=== PATIENT | female | born 1965 | race Caucasian/White ===

== ENCOUNTER 2023-02-28 17:56 | Observation (INO) | payer MEDICARE, MEDICAID, SELFPAY ==
[2023-02-20 11:23] LABS: Hematocrit 44.4 % (37-47); Hemoglobin 14.3 g/dL (12.0-15.0); Mean Corp Hgb Conc 32.2 g/dL (32-36); Mean Corpuscular Hgb 32.1 pg (27.0-32.0); Mean Corpuscular Volume 99.8 fL (81-99); Mean Platelet Vol. 9.3 fl (6.2-12.0); Platelet Count 200 K/mm3 (150-450); RBC Distribution Width CV 13.6 % (11.6-14.6); RBC Distribution Width SD 50.1 fl (35.1-43.9); Red Blood Count 4.45 M/mm3 (4.2-5.4); White Blood Count 7.9 K/mm3 (4.4-11.0)
[2023-02-20 12:07] LABS: Magnesium 2.6 mg/dL (1.6-2.6)
[2023-02-28] VITALS (10 sets, daily range): BP systolic 115–148; BP diastolic 67–88; PULSE 66–90; RESP 16; TEMP 36.6–37.3; O2SAT 98–100
[2023-02-28] MEDS: Lactated Ringers 1,000 ML 40 ML IV (06:00)
[2023-02-28] MEDS: Scopolamine 1mg/72hr Patch 1 PATCH TD (06:00)
[2023-02-28] MEDS: Magnesium 1 GM over 15 mins IV (06:30)
[2023-02-28] MEDS: Gabapentin 600 MG Tablet PO (06:45)
[2023-02-28] MEDS: Acetaminophen 500 MG Tablet 1000 MG PO ×2 (06:45→21:35)
[2023-02-28 07:00] LABS: Bedside Glucose 82 mg/dL (74-106)
--- NOTE | 2023-02-28 07:30 | BR_PTH ---
PATIENT: KWASI HARMON LOC: MS3 U#:[id number] AGE/SX: 57/F ROOM: [facility] RE02/28/[address]: Dr. Alan Vernon MD : 1965 BED: 1 DIS: 03/01/2023 SPEC #: [id number] RECD: 03/01/23 08:50 STATUS: MAYNOR BORDEN #: [id number] LADONNA: 02/28/23 07:[address]: Alan Vernon DEPT: SURGICAL PATHOLOGY RECD BY: Lluvia Wilcox ENTERED: 03/01/23 09:52 SP TYPE: MAMOPLASTY OTHR DR: Luciana Scott MD Tissues: A - Right breast, NOS B - Left breast, NOS Procedures: Surgery Specimen Level IV HEADER OPERATION: ERAS, breast reduction, mammoplasty PRE-OP DIAGNOSIS: Bilateral macromastia, neck and thoracic back pain, bilateral shoulder pain TISSUE SUBMITTED: A - Right breast, B - Left breast MICROSCOPIC DIAGNOSIS A. Right breast, reduction mammoplasty: Fibrocystic change. Focal lobular involution. Focal intraductal hyperplasia without atypia. Banal microcalcifications. Skin with no pathologic change. B. Left breast, reduction mammoplasty: Fibrocystic change. Focal lobular involution. Focal intraductal hyperplasia without atypia. Banal microcalcifications. Skin with no pathologic change. AM:maynor 03/05/2023 MICROSCOPIC DESCRIPTION Slides are reviewed. GROSS DESCRIPTION A - Received in fixative is one container labeled with the patient's name and designated right breast tissue. The specimen consists of multiple irregular fragments yellow fatty tissue (greater than 50) ranging in size from 0.1 to 12.0 cm and in aggregate weighing 750 gm. Fragments of skin are adherent to several pieces. No cutaneous lesions are seen. Serial sections reveal yellow to white cut surfaces. No distinct mass lesion is identified. Curb Supervisor sections are submitted in five cassettes. B - Received in fixative is one container labeled with the patient's name and designated left breast tissue. The specimen consists of multiple irregular fragments yellow fatty tissue (greater than 50) ranging in size from 0.5 to 16.0 cm and in aggregate weighing 765 gm. Fragments of skin are adherent to several pieces. No cutaneous lesions are seen. Serial sections reveal yellow to white cut surfaces. No distinct mass lesion is identified. Curb Supervisor sections are submitted in five cassettes. Note, the specimen is submitted after additional fixation. / AM:maynor 03/01/2023 TC:5 CPT: 43367 x2
[2023-02-28] MEDS: Cefazolin 2 GM in 0.9% Normal Saline 100 ML IV (08:15)
[2023-02-28] MEDS: Lidocaine 1% /Epi 1:100 (20ml) 20 ML Vial (08:55)
[2023-02-28] MEDS: Cefazolin 1 GM/50 ML BAG IV ×2 (12:15→16:21)
--- NOTE | 2023-02-28 15:48 | RAD_ITS ---
INDICATION: LATERAL VIEW CHEST ONLY. POSSIBLE FOREIGN BODY/BLADE EXAMINATION/TECHNIQUE: X-RAY - XR Chest 1 View RAD/Chest 1 View (Portable) IMPRESSION: There is an anterior chest wall drain, a presumably esophageal guidewire, and a few scattered emely. No radiopaque blade. Electronically Signed: Rafael Snyder MD at 20:20 EDT ,
--- NOTE | 2023-02-28 17:06 | OP.PCM_ITS ---
Problems Associated Problem List Diagnoses (1) Macromastia: (2) Chronic neck pain: (3) Chronic thoracic back pain: (4) Right shoulder pain: (5) Left shoulder pain: (6) Intertrigo: (7) Smoker: Report of Operation Date of Procedure: 02/28/23 Pre-Operative Diagnosis: 1. Bilateral macromastia. 2. Neck pain. 3. Thoracic back pain. 4. Bilateral shoulder pain from shoulder grooving from the weight of the breasts on her bra straps. 5. Inframammary intertrigo. 6. Smoker. Post-Operative Diagnosis: Same. Surgery/Procedure Performed:: Bilateral breast reduction mammaplasty. Description of Surgical Findings:: 57 year old woman presents with complaints of bilateral macromastia as well as associated painful symptomatology of neck pain, thoracic back pain, bilateral shoulder pain from shoulder grooving from the weight of her breasts on her bra straps, and inframammary intertrigo for which she uses powders and wears two shirts with minimal relief and without resolution of her symptomatology. She denies any trauma to her breasts.? Denies any nipple discharge.? She has had physical therapy for her cervical and thoracic spine pain without relief of her painful symptomatology. She had a mammogram in [place] on 12/29/22.? ?It showed scattered areas of fibroglandular density.? No suspicious masses, calcifications, skin thickening, or nipple retraction.? No significant interval change.?? We have received medical approval for her breast reduction surgery.? It is scheduled for February 28, 2023.? Patient was informed of the risks and complications of the procedure including alternatives to surgery. These were discussed with the patient personally. Patient voices understanding and wishes to proceed. Some of the risks and complications were included in a form from the [place] [employer]. Potential risks and complications included but not inclusive of bleeding, infection, seroma, hematoma, bruising, swelling, prolonged need for drains, loss of sensation to skin, partial or complete loss of skin flap and/or nipple, wound breakdown, need for wound care, poor scarring, poor aesthetic outcome, intra operative cardiac or neurologic events, DVT, PE, and reaction to anesthesia. Encouraged patient to stop smoking as it may have deleterious effects on wound healing. IV Fluids - 2200 ml. Urine Output - 550 ml. Tissue removed from the left breast - 714 grams. Tissue removed from the right breast - 684 grams. I used AxioFill Placental Connective Tissue Powder, (I used 500 mg x2, one in each breast at [facility]). Catalog Number - [id number]-0500. Lot Number - [id number]. Expiration - October 04, 2027, (Left Breast). Catalog Number - PCM-0500. Lot Number - [id number]. Expiration - October 04, 2027, (Right Breast). I used Laura absorbable hemostat, (I used 4 vials, 2 in each breast). Reference Number - [id number]. Lot Number - [id number]. Expiration - September 30, 2027, (2 vials in Left Breast, 2 vials in Right Breast). Surgeon: Alan Vernon MD building appraiser: Morteza Singh RNFA Type of Anesthesia: General Anesthesiologist: Earl Carvalho MD and Latha Benz CRNA Specimen's removed: 1. Left breast tissue to Pathology. 2. Right breast tissue to Pathology. Drains: Saturnino x2, (One in each breast). Estimated Blood Loss (mL): 150. Fluids Replaced: 2750 ml. (IV Fluids 2200 ml, Urine Output 550 ml). Description of Procedure: In the preop area, the patient was placed in the sitting position and preoperative markings were made.? The sternum midline was marked down to the umbilicus.? The inframammary folds were marked bilaterally.? The midclavicular line was then marked down to the nipple, then from the nipple to the inframammary fold.? The inframammary fold was then superimposed on the midclavicular line and I made a point 1 cm below that to be the new position of the nipple-areolar complex.? 7 cm lines were then drawn divergent from that point to encompass the nipple-areolar complex.? The distance between the divergent lines was 9 cm.? The patient was then placed in the supine position and taken to the operating room and placed under general anesthesia and her breasts were prepped and draped in usual fashion.? Ioban draping was also used.? SCDs were placed for DVT prophylaxis.? Perioperative antibiotics were given intravenously.? A Nuñez catheter was also placed. ? I then inge straight lines down from the lines drawn divergent around the nipple-areolar complex down to the inframammary fold.? The width of the pedicle is 9 cm.? I then used a 45 mm circular template for a new size of the nipple-areolar complex.? The central markings were infiltrated with Xylocaine and epinephrine.? The central skin was then deepithelialized.? I started on the left side first and then went to the right side.? I then mobilized medial and lateral breast flaps at the level of S carpa's fascia down to about 1-2 cm from the chest wall.? This was met in the midline of the breast with dissection at the level of Andrei's fascia down to about 1-2 cm from the chest wall.? Once the central breast mound pedicle was from the skin envelope, the reduction was then begun.? Most of the tissue was removed from the superior aspect of the breast and the lateral aspect of the breast.? I then sutured the leading edge of the medial and lateral breast flaps to the midline of the inframammary fold with 2-0 Vicryl suture.? The vertical incision was approximated using surgical clips.? The excess tissue from the medial and lateral breast flaps were excised and the horizontal incision was approximated using surgical clips.? The patient was then placed in a sitting position.? Using a vertical limb length of 5 cm, I inge the new position of the new nipple-areolar complexes on both breasts.? They were in good position on the central aspect of the breast mound.? Good symmetry was noted between the left breast and the right breast.? Good shape and contour and projection were noted and appeared clinically to be a C cup.? The patient was then placed back in the supine position and the surgical clips were removed.? The breast wounds were then irrigated with Irrisept 0.05% Chlorhexidine solution which was followed by saline irrigation.? Hemostasis was obtained using electrocautery.? The tissue removed from the left breast was 714 grams.? The tissue removed from the right breast was 684 grams.? The tissue that was removed from the breasts was sent to Pathology for analysis to rule out carcinoma. ? After hemostasis was obtained using electrocautery, I then sprayed Laura absorbable hemostat into both breast wounds to minimize seroma formation.? I used two vials for each side.? I then placed a size 15 Saturnino drain into each breast wound to be brought through the lateral aspect of the horizontal incision.? I then closed the breast wounds by first approximating the leading edge of the medial and lateral breast flaps to the midline of the inframammary fold with 2-0 Vicryl suture.? I then placed AxioFill placental connective tissue powder into both wounds at the level of the Tzone to help with the healing process. I used 500 mg in each breast. ? The deep dermis and subcutaneous tissue of the vertical incision and the horizontal incisions were approximated using 3-0 Monocryl interrupted sutures.? ? The horizontal incision was then approximated using 4-0 V-Loc unidirectional barbed running subcuticular suture.? I also placed a few 4-0 Prolene vertical mattress interrupted sutures at the level of the Tzone.? The vertical incision was then closed on the skin with 4-0 Prolene interrupted sutures.? With a vertical limb length of 5 cm, I inge a circular incision where the nipple-areolar complex would be brought through this keyhole incision.? Incisions were made and the nipple areolar complex was brought through the keyhole incision.? The nipple- areolar complex was secured to the breast skin using 3-0 Monocryl interrupted sutures for deep dermis and subcutaneous tissue.? The skin was approximated using 4-0 Prolene simple interrupted sutures.? This was then covered with Histoacryl skin tissue adhesive.? I sutured the drains to the skin using 3-0 nylon pursestring suture.? Prior to closure of the right breast, it was noted that the scalpel count was incorrect. X-ray was obtained to look to see if the scalpel blade was left in the left breast. The x-ray was negative. So wound closure continued on the right breast. At the end of the procedure, the breasts were soft with no evidence of vascular compromise.? No evidence of hematomas were noted.? The nipples were viable.? Some bruising noted on lateral breasts which is not unexpected because she is a smoker. I then dressed the breasts with a Kerlix gauze and a compression surgical bra.? The patient tolerated the procedure well and will be sent to the recovery room in satisfactory condition.? She will be admitted for surgical observation overnight stay.? She will go home tomorrow once she is tolerating oral pain medication.? I will remove the drains in a few days.? She will keep her head elevated during the initial postoperative period.? She will be maintained on a lifting restriction and keep her head elevated during the initial postoperative period.? The operative blood loss was about 150 ml.? Post-discharge, she may get a compression sports bra as well.? She will have the Nuñez removed in the morning.? She will be sent home on antibiotics and pain medicine.? Sutures will be removed in 1-2 weeks. Grafts/Implants Used: AxioFill placental connective tissue powder, 500 mg x2, Laura x4. Procedure Start Time: 08:49 Procedure Stop Time: 17:18 Complications None. Admit VTE Documentation VTE Present on Admission: No VTE Mechan Device Prophylaxis: SCD's VTE Pharm Prophylaxis ordered?: Yes Addendum Addendum: Surgery Charges CPT - 93683-26 ICD-10 - N62, M54.2, M54.6, M25.511, M25.512, L30.4, F17.200 45364 N62, M54.2, M54.6, M25.511, M25.512, L30.4, F17.200
[2023-02-28 19:16] LABS: Bedside Glucose 167 mg/dL (74-106)
[2023-02-28] MEDS: Lactated Ringers 1,000 ML 60 ML IV (21:35)
[2023-03-01] MEDS: Cefazolin 1 GM/50 ML BAG IV ×3 (02:27→11:26)
[2023-03-01 02:30] VITALS: BP 139/100; PULSE 84; RESP 16; TEMP 36.9; O2SAT 96
[2023-03-01] MEDS: Acetaminophen 500 MG Tablet 1000 MG PO ×3 (02:34→12:30)
[2023-03-01 06:13] LABS: Hematocrit 32.4 % (37-47); Hemoglobin 10.6 g/dL (12.0-15.0); Mean Corp Hgb Conc 32.7 g/dL (32-36); Mean Corpuscular Hgb 33.4 pg (27.0-32.0); Mean Corpuscular Volume 102.2 fL (81-99); Mean Platelet Vol. 8.9 fl (6.2-12.0); Platelet Count 186 K/mm3 (150-450); RBC Distribution Width CV 13.6 % (11.6-14.6); RBC Distribution Width SD 51.4 fl (35.1-43.9); Red Blood Count 3.17 M/mm3 (4.2-5.4); White Blood Count 12.6 K/mm3 (4.4-11.0)
--- NOTE | 2023-03-01 06:50 | NURSING ---
Took supplies to patient room to remove nick cath. She did not want it removed yet, she wants to sleep a little longer. Has been very drowsy since surgery but it alert and oriented. Only Tylenol has been given for pain.
[2023-03-01 07:08] LABS: Anion Gap 1 (5-15); BUN 22 mg/dL (7-18); BUN/Creat Ratio 15.8 RATIO (10-20); Calcium,Total 8.1 mg/dL (8.5-10.1); Chloride 113 mmol/L (98-107); Creatinine, Serum 1.39 mg/dL (0.55-1.02); EST Glomerular Filtration Rate 42 mL/min (>60); Est Glom Filt Rate - Afr Amer 50 mL/min (>60); Estimated Creatinine Clearance 37.38 ml/min; Glucose 108 mg/dL (74-106); Potassium 4.5 mmol/L (3.5-5.1); Prealbumin 22.4 mg/dL (20.0-40.0); Sodium Level 140 mmol/L (136-145)
[2023-03-01 07:16] VITALS: O2SAT 97
[2023-03-01] MEDS: Docusate Sodium 100 MG Capsule PO (08:12)
[2023-03-01] MEDS: Fluticasone 0.05% 1 SPRAY NASAL.SRY 2 SPRAY NASAL (08:12)
[2023-03-01] MEDS: Ensure Surgery 237 ML LIQUID PO ×2 (08:12→12:29)
[2023-03-01] MEDS: Gabapentin 100 MG Capsule 200 MG PO ×2 (08:12→12:29)
[2023-03-01] MEDS: Enoxaparin 40 MG/0.4 ML Syringe SC (08:13)
[2023-03-01] MEDS: Pantoprazole Sodium 40 MG Tablet PO (08:14)
[2023-03-01 08:40] VITALS: BP 108/60; PULSE 78; RESP 16; TEMP 37.6; O2SAT 97
[2023-03-01 11:28] VITALS: BP 106/58; PULSE 83; RESP 16; TEMP 37.6; O2SAT 95
--- NOTE | 2023-03-01 12:51 | PCM.PN.SRG ---
Subjective Subjective Postop #1 Patient resting comfortably. Tolerating po analgesia. She is steady on her feet with ambulation. Objective Data Objective Data Vital Signs: Vital Signs Temp Pulse Resp BP Pulse Ox O2 Del Method O2 Flow Rate 99.7 F H 83 16 106/58 L 95 Room Air 3 03/01/23 11:28 03/01/23 11:28 03/01/23 11:28 03/01/23 11:03/01/23 11:03/01/23 11:03/01/23 07:16 Oxygen Flow Rate (L/min) 3 Oxygen Delivery Method Room Air Weight: 170 lb 0.01 oz Intake & Output: Intake and Output for Last 24 Hours 02/27/23 02/28/23 03/01/23 23:59 23:59 23:59 Intake Total 412 / 412 1500 / 1500 Output Total 805 / 805 730 / 730 Balance -393 / -393 770 / 770 Drainage 55 ml yesterday, 80 ml today Prealbumin was 22.4. Encourage nutritional supplementation with protein to help the healing process. Lab / Micro Data Attestation: I reviewed the patient's lab results. Lab results narrative: Creatinine 1.39. No other level reported in [employer]. Will repeat the Creatinine in a week after discharge. Followup with PCP for further evaluation and treatment. 03/01/23 05:50 03/01/23 05:50 Labs: Laboratory Results - last 24 hr 02/28/23 18:57: POC Glucose 167 H 03/01/23 05:50: WBC 12.6 H, RBC 3.17 L, Hgb 10.6 L, Hct 32.4 L, MCV 102.2 H, MCH 33.4 H, MCHC 32.7, RDW Std Deviation 51.4 H, RDW Coeff of Manny 13.6, Plt Count 186, MPV 8.9, Sodium 140, Potassium 4.5, Chloride 113 H, Carbon Dioxide 26.0, Anion Gap 1 L, BUN 22 H, Creatinine 1.39 H, Estim Creat Clear Calc 37.38, Est GFR (MDRD) Af Amer 50 L, Est GFR (MDRD) Non-Af 42 L, BUN/Creatinine Ratio 15.8, Glucose 108 H, Calcium 8.1 L, Prealbumin 22.4 Radiography Diagnostic Testing: Radiology Impression Chest X-Ray 02/28/23 15:48 IMPRESSION: There is an anterior chest wall drain, a presumably esophageal guidewire, and a few scattered emely. No radiopaque blade. Electronically Signed: Rafael Snyder MD at 20:20 EDT , Physical Exam Narrative General - Alert and Oriented HEENT - PERRL. EOMI. Neck - Supple and nontender. Breasts - Soft and symmetrical. Incisions dry and intact. Good breast contour noted. Nipples are viable. Some skin bruising laterally. Will monitor. No clinical evidence of hematoma. Abdomen - Soft and nondistended. Neuro - CN II-XII grossly intact. Psych - Normal mood and affect. Assessment & Plan Assessment/Plan (1) Macromastia: (2) Chronic neck pain: (3) Chronic thoracic back pain: (4) Right shoulder pain: (5) Left shoulder pain: (6) Intertrigo: (7) Smoker: PLAN: Encouraged patient to stop smoking as it may have deleterious effects on wound healing. (8) Increase in creatinine: PLAN: Creatinine 1.39.? No other level reported in [employer].? Will repeat the Creatinine in a week after discharge.? Followup with PCP for further evaluation and treatment. PLAN: Plan Breasts are soft and symmetrical. No clinical evidence of hematoma. Good breast contour noted. Nipples are viable. Mild bruising lateral breasts. Will monitor. Manipulation of the skin flaps in a patient that smokes can manifest with bruising. Should resolve with time. Creatinine was elevated at 1.39. There was no previous level to compare to in [employer]. Creatinine 1.39. No other level reported in [employer]. Will repeat the Creatinine in a week after discharge. Followup with PCP for further evaluation and treatment. Will remove the drains next week in the office. Drainage too much today to remove them today. Patient may shower once the drains are removed. Prealbumin was 22.4. Encourage nutritional supplementation with protein to help the healing process. Patient is tolerating po analgesia. She is steady on her feet with ambulation. She was able to void once the nick catheter was removed. Discharge home today. Followup in office next week, 03/07/23, to remove the drains. Will remove the sutures in 1-2 weeks. Continue erin wrap compression and lifting restriction (20 lbs). Keep head elevated. Encouraged patient to stop smoking as it may have deleterious effects on wound healing.
--- NOTE | 2023-03-01 12:54 | DCINST_ITS ---
Discharge Instructions Diet Discharge Diet: No restrictions Activity May resume sexual activity in: 10-14 days Lifting Restrictions: 20 lb weight lifting restriction Additional Activity Instructions:: Keep head elevated at all times. Dressing / Incision Call your doctor if your incision/area has: Continuous Slow Oozing, Sudden Increased Bleeding, Increased Pain/ Swelling, Increased Redness and Foul Smelling Discharge Call your doctor if you observe: Fever of 101 or Higher, Inability to urinate, Inability to have a bowel movement, Shortness of breath, Chest pain, Calf discomfort and Uncontrolled pain Change Dressing in: leave in place till F/U Drain: Suction Additional Dressing/Incision Instructions:: Wear compression at all times. May change dressing if necessary. Do not shower until drains are removed. Follow Up Care Please Follow Up With: Alan Vernon MD When: SundayMarch 05 in the afternoon or on SundayMarch 07. Test Results: Test results from this visit will be discussed in further detail at your follow- up appointment, if applicable. Discharge Plan Admission Admit Date/Time: 02/28/23 17:56 Attending Provider: Alan Vernon Primary Care Provider: Luciana Scott Discharge Orders/Prescriptions Prescriptions: New hydrocodone-acetaminophen 5-325 mg tablet 1 tab PO Q6H PRN (Reason: pain (scale score 4-6)) 7 Days Qty: 28 0RF cefadroxil 500 mg capsule 500 mg PO BID 6 Days Qty: 12 0RF L.acidoph,saliva-B.bif-S.therm [Acidophilus Probiotic Blend] 175 mg capsule 1 cap PO DAILY 14 Days Qty: 14 0RF L.acidoph,saliva-B.bif-S.therm [Acidophilus Probiotic Blend] 175 mg capsule 1 cap PO DAILY 14 Days Qty: 14 0RF hydrocodone-acetaminophen 5-325 mg tablet 1 tab PO Q6H PRN (Reason: pain (scale score 4-6)) 7 Days Qty: 28 0RF cefadroxil 500 mg capsule 500 mg PO BID 7 Days Qty: 14 0RF Continued omeprazole 40 mg capsule,delayed release(DR/EC) 40 mg PO DAILY Gemtesa 75 mg tablet 75 mg PO QHS ergocalciferol (vitamin D2) 1,250 mcg (50,000 unit) capsule 1,250 mcg PO TU fluticasone propionate [Allergy Relief (fluticasone)] 50 mcg/actuation spray,suspension 2 spray intranasal DAILY Rx Instructions: administer into each nostril venlafaxine 150 mg capsule,extended release 24hr 150 mg PO QHS topiramate 25 mg capsule,extended release 24hr 50 mg PO QHS valsartan 160 mg tablet 160 mg PO QHS Discontinued Excedrin Tension Headache 500-65 mg tablet 1 tab PO Q6H PRN (Reason: Migraine Headache) diazepam [Valium] 5 mg tablet 5 mg PO QHS PRN (Reason: sleep) Qty: 3 0RF Rx Instructions: Patient will take the medication nightly for 3 nights starting 3 days before her surgery Referrals / Follow Up: Luciana Scott MD [Primary Care Provider] - Disposition Disposition (needs filled in before D/C Order can be placed): Home, Self Care
--- NOTE | 2023-03-01 13:25 | CASEMGMT ---
DEBI CM into pt room, pt sitting up in bed in no distress. Pt states she feels comfortable going home and caring for her drains. Pt denies any homegoing needs.
== END 2023-03-01 14:59 | disposition home or self-care (01) ==
LOC: SDC 18:42 → MS3 18:42
PROVIDERS: Anesthesiology; Admitting Provider Surgery; PCP Internal Medicine; Referring Provider Surgery; Visit Provider Surgery
PROC: 0H0U0ZZ Alteration of Left Breast, Open Approach (ICD-10-PCS; CPT 19318; principal; 2023-02-28 07:15)
DX: N62 Hypertrophy of breast (principal); M25.512 Pain in left shoulder; G89.29 Other chronic pain; M54.2 Cervicalgia; M25.511 Pain in right shoulder; F17.210 Nicotine dependence, cigarettes, uncomplicated; M54.6 Pain in thoracic spine; L30.4 Erythema intertrigo; Z79.899 Other long term (current) drug therapy; K21.9 Gastro-esophageal reflux disease without esophagitis
CPT/HCPCS: 19318; 00402; Q9968; 36415; 71045; 80048; 82962; 83735; 84134; 85027; 88305; 93005; 94668; 94762; 96365; 96366; 96372; 97802; 99221; J7120; G0378; J2405; J3475

== ENCOUNTER → 2023-03-21 | Outpatient (CLI) | payer MEDICARE, MEDICAID, SELFPAY | END | disposition home or self-care (01) | LOC: PAVLAB 14:39 | PROVIDERS: PCP Internal Medicine; Referring Provider Surgery; Visit Provider Surgery | DX: T81.89XA Other complications of procedures, not elsewhere classified, initial encounter (principal); F17.200 Nicotine dependence, unspecified, uncomplicated; Z98.890 Other specified postprocedural states | CPT/HCPCS: 87070; 87075; 87077; 87186; 87205 ==

== ENCOUNTER → 2023-04-24 | Outpatient (CLI) | payer MEDICARE, MEDICAID, SELFPAY ==
[2023-04-24 15:16] LABS: Anion Gap 6 (5-15); BUN 31 mg/dL (7-18); BUN/Creat Ratio 42.1 RATIO (10-20); Calcium,Total 9.6 mg/dL (8.5-10.1); Chloride 110 mmol/L (98-107); Creatinine, Serum 0.74 mg/dL (0.55-1.02); EST Glomerular Filtration Rate 86 mL/min (>60); Est Glom Filt Rate - Afr Amer 105 mL/min (>60); Glucose 87 mg/dL (74-106); Potassium 4.5 mmol/L (3.5-5.1); Sodium Level 141 mmol/L (136-145)
== END | disposition home or self-care (01) ==
LOC: PAVLAB 14:34
PROVIDERS: Nurse Practitioner Family; PCP Internal Medicine; Referring Provider Surgery; Visit Provider Surgery
DX: R79.89 Other specified abnormal findings of blood chemistry (principal); Z98.890 Other specified postprocedural states; T81.89XA Other complications of procedures, not elsewhere classified, initial encounter
CPT/HCPCS: 36415; 80048

== ENCOUNTER → 2023-07-31 | Outpatient (CLI) | payer MEDICARE, MEDICAID, SELFPAY ==
--- NOTE | 2023-07-31 09:20 | BI_ITS ---
MAMMOGRAPHY - BILATERAL DIAGNOSTIC REASON FOR EXAM: Female, 58 years old. Bilateral breast lumps. Recent bilateral breast reduction surgery. PERTINENT HISTORY: Non-contributory. TECHNIQUE: Digital bilateral breast flaquita (3D mammographic acquisition) in the CC and MLO projections. 2-D mediolateral oblique (MLO) and craniocaudad (CC) views of both breasts were obtained. CAD: Full Field Digital Mammography with Computer Added Detection was performed. COMPARISON: Comparison is made with prior outside examination dated December 29, 2022. FINDINGS: Breast Composition: There are scattered areas of fibroglandular density. There are no dominant masses or suspicious calcifications. Findings consistent with a bilateral breast reduction surgery. No focal mass is seen. No other significant abnormalities are identified. BI/DIAG MAMM W/CAD, BILAT IMPRESSION: Status post bilateral breast reduction surgery. With the patient''s history of palpable lumps in both breasts, correlation with ultrasound is recommended. ASSESSMENT CATEGORY: BIRADS Category 0: Incomplete. Need additional imaging evaluation. A letter regarding these results will be sent to the patient by the facility within 30 days. Approximately 10% of breast cancers are not detected by mammography. A normal mammogram should not delay biopsy of a clinically suspicious abnormality. Electronically Signed: Stevie Alegria MD at 14:39 EST ,
--- NOTE | 2023-07-31 09:20 | US_ITS ---
STUDY: ULTRASOUND BREAST - RIGHT REASON FOR EXAM: Female, 58 years old. Palpable lump in the right breast. Recent breast reduction surgery. TECHNIQUE: Axial and longitudinal images of the RIGHT breast were performed with a high resolution ultrasound transducer. # OF IMAGES: 55 COMPARISON: Comparison is made with prior mammogram done earlier today. FINDINGS: RIGHT Breast: The lateral half of the right breast was examined with ultrasound. No sonographic abnormality is seen. IMPRESSION: No sonographic abnormality is seen. ASSESSMENT CATEGORY: BIRADS Category 1: Negative. A letter regarding these results will be sent to the patient by the facility within 30 days. Electronically Signed: Stevie Alegria MD at 10:16 EST , STUDY: ULTRASOUND BREAST - LEFT REASON FOR EXAM: Female, 58 years old. Palpable lump left breast. Recent breast reduction surgery. TECHNIQUE: Axial and longitudinal images of the LEFT breast were performed with a high resolution ultrasound transducer. # OF IMAGES: 55 COMPARISON: Comparison is made with prior mammogram done earlier today. FINDINGS: LEFT Breast: The palpable lump corresponds to a 1.3 cm x 1.1 cm x 1 cm scar tissue at the 10:00 position of the breast at 6 cm from the nipple. US/Breast Limited Unilateral IMPRESSION: The palpable abnormality corresponds to the site of the scar. ASSESSMENT CATEGORY: BIRADS Category 2: Benign. A letter regarding these results will be sent to the patient by the facility within 30 days. Electronically Signed: Stevie Alegria MD at 10:17 EST ,
== END | disposition home or self-care (01) ==
LOC: OPUS 09:20
PROVIDERS: PCP Internal Medicine; Referring Provider Nurse Practitioner Family; Visit Provider Nurse Practitioner Family
DX: N64.1 Fat necrosis of breast (principal); N63.10 Unspecified lump in the right breast, unspecified quadrant; N63.20 Unspecified lump in the left breast, unspecified quadrant; F17.200 Nicotine dependence, unspecified, uncomplicated; Z98.890 Other specified postprocedural states
CPT/HCPCS: 76642; 77062; 77066; G0279